=== PATIENT | female | born 1990 | race American Indian/Alaskan Native ===

== ENCOUNTER 2017-09-25 09:52 | Inpatient (IN) | payer MEDICAID ==
--- NOTE | 2017-09-23 03:13 | History and Physical Report ---
History of Present Illness Date of examination: 09/25/17 Chief complaint: scheduled section History of present illness: Pt is a 27 year old -[place] female LUAN 09/27/17 at 39w5d who presents for scheduled repeat section secondary to previous x 1. She reports irregular contractions and denies vaginal bleeding or leakage of fluid. She has had care at [facility] since transfer into care at 30 wks complicated y previous section. She is GBS negative. Past History Past Medical History: no pertinent history, other (Anxiety ) Past Surgical History: section, other (Hernia repair ) Family/Genetic History: hypertension Social history: no significant social history - Obstetrical History Expected Date of Delivery: 09/27/17 Actual Gestation: 39 Week(s) 3 Day(s) : 2 Para: 1 Hx # Term Pregnancies: 1 Number of Pregnancies: 0 Spontaneous Abortions: 0 Induced : 0 Number of Living Children: 1 Medications and Allergies Allergies Allergy/AdvReac Type Severity Reaction Status Date / Time No Known Allergies Allergy Unverified 03/21/14 15:35 Home Medications Medication Instructions Recorded Confirmed Last Taken Type Ondansetron [Zofran Odt] 4 mg PO QID PRN #30 tab.rapdis 03/21/14 Unknown Rx Review of Systems All systems: negative Gastrointestinal: nausea - Physical Exam Breasts: Positive: deferred Cardiovascular: Regular rate Lungs: Positive: Clear to auscultation Abdomen: Positive: soft (gravid ) Uterus: Positive: enlarged (gravid) Extremities: Positive: normal - Obstetrical FHR: auscultation normal Uterine Contraction Monitor Mode: External Uterine Contraction Pattern: Irregular Uterine Tone Measurement Phase: Resting Results All other labs normal. Assessment and Plan A: IUP at 39w5d Previous x 1 GBS negative P: Proceed with repeat section and other indicated procedures.
[~2017-09-25 09:52] MED LIST: ANCEF/STERILE WATER 2 GM/20 ML 2 GM/20 ML SYRINGE IV NR; BICITRA PO ONE; PEPCID IV ONE; PITOCin/NS 20 UNIT/1000ML DRIP 20 UNITS/1,000 ML BAG IV SCH; REGLAN IV ONE
[2017-09-25] MEDS: LACTATED RINGERS 1,000 ML IV SCH ×2 (11:00→11:35)
[2017-09-25] MEDS ORDERED: PEPCID IV ONE (11:24)
[2017-09-25] MEDS ORDERED: REGLAN ONE (11:24)
[2017-09-25] MEDS ORDERED: BICITRA ONE (11:24)
[2017-09-25 11:40] LABS: Hematocrit 35.2 % (30.3-42.9); Hemoglobin 11.2 gm/dl (10.1-14.3); Mean Corpuscular HGB Conc 32 % (30-34); Mean Corpuscular Volume 79 fl (79-97); Platelet Count 226 K/mm3 (140-440); Red Blood Count 4.46 M/mm3 (3.65-5.03); Red Cell Distribution Width 13.1 % (13.2-15.2)
[2017-09-25 11:53] LABS: Mean Corpuscular Hemoglobin 25 pg (28-32)
[2017-09-25] MEDS ORDERED: WATER FOR IRRIG STERILE IR ONE (12:05)
[2017-09-25] MEDS ORDERED: NACL 0.9% IR ONE (12:05)
[2017-09-25] MEDS ORDERED: NEO SYNEPHRINE/NS Syringe(OR USE) IV ONE (12:25)
[2017-09-25 12:41] LABS: Basophils % (Manual) 0 % (0.0-1.8); Total Cells Counted 100
[2017-09-25] MEDS ORDERED: LACTATED RINGERS 1,000 ML ONE (12:41)
[2017-09-25 12:42] LABS: Hypochromasia 1+; Platelet Estimate Consistent w Auto
--- NOTE | 2017-09-25 14:00 | Procedure Note ---
OB Delivery Note - Delivery Date of Delivery: 09/25/17 Surgeon: HONG SEWELL Estimated blood loss: other (800 mL) - Section Preop diagnosis: repeat Postop diagnosis: same section procedure: section, repeat low transverse Disposition: PACU Complications: none Narrative: Please see operative report - Infant A at 1 minute: 8 at 5 minutes: 9 Infant Gender: Female (2605g (5lb 12 oz) @ 1254 pm)
--- NOTE | 2017-09-25 14:04 | Operative Report ---
Operative Report Operative Report: Date of procedure: September 25, 2017 Preoperative diagnosis: 1) IUP at 39w5d 2) Previous x 1 3) Morbid Obesity BMI 43 Postoperative diagnosis: Same Procedure: Repeat low transverse section Surgeon: Parul Maldonado M.D. Anesthesia: Spinal Findings: 1) Viable female , Apgars 8 and 9, weight 2605g, (5 lb 12 oz) in vertex presentation 2) Normal-appearing uterus ovaries and tubes Estimated blood loss: 800 mL IV fluids: 1400 mL Urine output: 125 mL, clear at the end of the procedure Drains: Roman to gravity Specimens: None Medications: Additional 20 units of pitocin in IV fluid Complications: None. Counts correct x 3 Disposition: Stable to PACU Indication for procedure: Pt is a 27 year old at 39w5d with a h/o one previous presents for repeat section Operation in detail: After the risks, benefits, alternatives and complications were explained to the patient she gave informed consent for the procedure. She was subsequently taken to the operating room where spinal anesthesia was noted to be adequate. She was subsequently placed in the dorsal supine position with leftward tilt and prepped and draped in a normal sterile fashion. heart tones were noted to be in the 155s prior to incision. A timeout was performed. A Pfannenstiel skin incision was made with the knife and carried down to the layer of the fascia with the Bovie. The fascia was incised in the midline and the fascial incision was extended bilaterally with the Bovie. Attention was then turned to the superior aspect of the incision which was grasped with two Kochers, tented up, and dissected off the rectus muscles. Attention was then turned to the inferior aspect of the incision which was grasped with two Kochers , tented up and dissected off the rectus muscles. The rectus muscles were then in the midline and partially transected for adequate visualization. The peritoneum was then entered bluntly. The peritoneal incision was extended with good visualization of the bladder. The peritoneal incision was then stretched. An Rip self-retaining retractor was placed for visualization. The bladder blade was placed. The vesicouterine peritoneum was grasped with smooth pickups and incised with Metzenbaum scissors. Metzenbaum scissors were used to extend the incision bilaterally. The bladder flap was then created digitally and the bladder blade was replaced. A transverse incision was made in the lower uterine segment with a knife and extended bilaterally with the bandage scissors. The head was delivered without difficulty followed by shoulders and body. was bulb suctioned at delivery. The cord was clamped and cut and the was handed to NICU staff in attendance. Cord blood was collected. The placenta was then delivered manually. The uterus was then cleared of all clots and debris. Uterine atony was then noted, and an additional 20 units of pitocin was added to the IVf fluids. Uterine tone was improved. The hysterotomy was then reapproximated with 0 Vicryl in a running locked fashion. A second layer of the same suture was used in imbricating fashion. The hysterotomy was inspected and hemostasis was noted. The Rip self-retaining retractor was removed. The gutters were irrigated and cleared of all clots and debris. The hysterotomy was again inspected and noted to be hemostatic. Surgicel was placed over the hysterotomy. The periotoneum was reapproximated with 2-0 Vicryl in a running fashion incorporating the rectus muscles. Surigcel was placed over the cut edges of the rectus muscles. The fascia was reapproximated with 0 Vicryl in a running fashion. The subcutaneous tissue was reapproximated with 3-0 Vicryl in a running fashion. The skin was reapproximated with 4-0 Vicryl in a subcuticular fashion. The incision was then covered with steri strips and a pressure dressing. The procedure was then ended. The patient tolerated the procedure well and was taken to the PACU in stable condition. All instrument, lap, and needle counts were correct 3.
--- NOTE | 2017-09-25 14:06 | Anesthesia Consultation ---
Anesthesia Consult and Med Hx - Airway Anesthetic Teeth Evaluation: Good ROM Head & Neck: Adequate Mental/Hyoid Distance: Adequate Mallampati Class: Class II Intubation Access Assessment: Probably Good - Pulmonary Exam CTA: Yes - Cardiac Exam Cardiac Exam: RRR - Pre-Operative Health Status ASA Pre-Surgery Classification: ASA2, ASA3 Proposed Anesthetic Plan: Spinal - Pulmonary Hx Asthma: No COPD: No Hx Pneumonia: No - Cardiovascular System Hx Hypertension: No - Central Nervous System Hx Seizures: No Hx Psychiatric Problems: No - Endocrine Hx Renal Disease: No Hx End Stage Renal Disease: No Hx Hypothyroidism: No Hx Hyperthyroidism: No - Hematic Hx Anemia: No Hx Sickle Cell Disease: No - Other Systems Hx Alcohol Use: No Hx Obesity: Yes
--- NOTE | 2017-09-25 14:07 | Anesthesia Day of Surgery ---
Anesthesia Day of Surgery - Day of Surgery Patient Examined: Yes Patient H&P Reviewed: Yes Patient is NPO: Yes
[2017-09-25] MEDS ORDERED: MORPHINE IV PRN ×3 (14:13→18:36)
[2017-09-25] MEDS ORDERED: ZOFRAN IV PRN ×2 (14:13→18:36)
[2017-09-25] MEDS ORDERED: BENADRYL ONE (15:21)
[2017-09-25] MEDS ORDERED: LANSINOH TP PRN (18:36)
[2017-09-25] MEDS ORDERED: SODIUM CHLORIDE FLUSH SYRINGE 10 ML IV SCH (18:36)
[2017-09-25] MEDS ORDERED: MYLICON PO PRN (18:36)
[2017-09-25] MEDS ORDERED: ANCEF/NS 1 GM/50 ML 1 GM/50 ML BAG IV SCH (18:36)
[2017-09-25] MEDS ORDERED: NARCAN 0.4 MG/1 ML IV PRN (18:36)
[2017-09-25] MEDS ORDERED: TUCKS PAD TP PRN (18:36)
[2017-09-25] MEDS ORDERED: PITOCin/NS 20 UNIT/1000ML DRIP 20 UNITS/1,000 ML BAG IV SCH (19:00)
[2017-09-25] MEDS ORDERED: NUBAIN IV ONE (19:00)
[2017-09-25] MEDS: ceFAZolin 1 GM in NACL 0.9% 20 ML IV SCH (19:47)
[2017-09-25] MEDS: D5LR 1,000 ML IV SCH (19:47)
[2017-09-25] MEDS: BENADRYL IV PRN (22:32)
[2017-09-25] MEDS: MILK OF MAGNESIA PO SCH (23:16)
[2017-09-25] MEDS: TORADOL IV PRN (23:16)
[2017-09-26] MEDS: BENADRYL IV PRN (04:39)
[2017-09-26] MEDS: TORADOL IV PRN (04:39)
[2017-09-26] MEDS: ceFAZolin 1 GM in NACL 0.9% 20 ML IV SCH (04:40)
[2017-09-26] MEDS: D5LR 1,000 ML IV SCH (04:43)
[2017-09-26 05:52] LABS: Hematocrit 29.8 % (30.3-42.9); Hemoglobin 9.8 gm/dl (10.1-14.3)
[2017-09-26] MEDS ORDERED: BOOSTRIX IM ONE (06:00)
[2017-09-26] MEDS: MILK OF MAGNESIA PO SCH ×3 (06:31→18:31)
--- NOTE | 2017-09-26 08:25 | Progress Note ---
Assessment and Plan A/P POD#1 s/p repeat c/sec doing well breast feeding anemia 11-9 iron supplement added +flatus gonzales removed adequate urine output awaiting urination continue routine POD orders Subjective - Subjective Date of service: 09/26/17 Principal diagnosis: s/p repeat c/sec Patient reports: appetite normal, pain well controlled, flatus, ambulating normally : doing well, nursing well Objective - Vital Signs Latest vital signs: Vital Signs Temp Pulse Resp BP BP Pulse Ox 09/26/17 05:09 18 09/26/17 04:39 18 09/26/17 04:10 98.8 F 105 H 20 118/55 97 09/26/17 00:35 98.7 F 112 H 20 134/66 98 09/25/17 23:46 18 09/25/17 23:16 18 09/25/17 21:30 99.3 F 107 H 20 131/59 98 09/25/17 20:28 18 09/25/17 19:58 18 09/25/17 16:00 97.6 F 94 H 20 116/68 100 09/25/17 15:45 98.1 F 84 20 134/54 09/25/17 15:10 97.6 F 09/25/17 15:06 88 17 105/55 99 09/25/17 15:00 79 15 111/55 100 09/25/17 14:55 78 22 104/49 98 09/25/17 14:50 78 20 104/46 99 09/25/17 14:45 92 H 18 103/50 98 09/25/17 14:40 95 H 20 104/44 99 09/25/17 14:35 82 20 97/39 97 09/25/17 14:30 85 22 98/39 99 09/25/17 14:24 87 18 95/44 96 09/25/17 14:18 83 19 95/39 97 09/25/17 14:12 97 H 17 104/59 99 09/25/17 14:07 101 H 99 09/25/17 14:06 89 11 L 98 09/25/17 14:05 97.6 F 92 H 14 106/41 97 09/25/17 14:02 91 H 99 09/25/17 13:57 99 H 98 09/25/17 13:52 96 H 98 09/25/17 13:47 111 H 98 09/25/17 13:42 110 H 97 09/25/17 13:38 103 H 138/90 09/25/17 13:37 104 H 100 09/25/17 11:36 100 H 100 09/25/17 11:19 98 H 120/77 09/25/17 11:02 98.0 F 20 09/25/17 10:43 110 H 130/90 Intake and Output 09/25/17 09/26/17 09/26/17 23:59 07:59 15:59 Intake Total 120 1240 Output Total 1100 1200 Balance -980 40 Intake: IV 1000 D5lr 1,000 ml @ 125 mls/ 1000 hr IV DIRECT ZULEIKA Rx#: [id number] Oral 120 240 Output: Urine 1100 1200 Indwelling Catheter 1100 1200 Other: Total, Intake Amount 120 240 Total, Output Amount 800 1200 # Bowel Movements 0 - Exam Breasts: Present: normal Cardiovascular: Present: Regular rate, Normal S1 Lungs: Present: Clear to auscultation, Normal air movement Abdomen: Present: normal appearance, soft, normal bowel sounds. Absent: distention, tenderness, guarding Vulva: both: normal Uterus: Present: normal, firm, fundal height below umbilicus. Absent: bogginess , tenderness Extremities: Present: normal Deep Tendon Reflex Grade: Normal +2 Incision: Present: normal, dressed - Labs Labs: Abnormal lab results 09/25/17 09/26/17 Range/Units 10:30 05:38 Hgb 9.8 L (10.1-14.3) gm/dl Hct 29.8 L (30.3-42.9) % MCH 25 L (28-32) pg RDW 13.1 L (13.2-15.2) % Seg Neuts % (Manual) 72.0 H (40.0-70.0) % Monocytes % (Manual) 8.0 H (0.0-7.3) %
[2017-09-26] MEDS ORDERED: FEOSOL PO SCH (10:00)
[2017-09-26] MEDS: FEOSOL PO SCH (13:30)
[2017-09-26] MEDS ORDERED: M-M-R II VACCINE SUB-Q ONE (14:06)
[2017-09-26] MEDS: PERCOCET 5/325 PO PRN ×2 (15:06→20:38)
--- NOTE | 2017-09-26 15:22 | Progress Note ---
Subjective Date of service: 09/26/17 Principal diagnosis: s/p repeat c/sec Interval history: Patient seen, has had some cramping but otherwise comfortable and ambulating. Objective - Constitutional Vitals: Vital Signs - 12hr 09/26/17 09/26/17 09/26/17 04:10 04:39 05:09 Temperature 98.8 F Pulse Rate 105 H Respiratory 20 18 18 Rate Blood Pressure Blood Pressure 118/55 [Left] O2 Sat by Pulse 97 Oximetry 09/26/17 09/26/17 09/26/17 05:43 08:52 09:13 Temperature 99.3 F 99.3 F Pulse Rate 105 H 108 H 104 H Respiratory 18 20 Rate Blood Pressure 118/55 114/62 Blood Pressure 114/62 [Left] O2 Sat by Pulse 96 97 Oximetry 09/26/17 12:38 Temperature 98.5 F Pulse Rate 110 H Respiratory 18 Rate Blood Pressure 123/60 Blood Pressure [Left] O2 Sat by Pulse 99 Oximetry - Labs CBC & Chem 7: 09/26/17 05:38 Labs: Abnormal lab results 09/26/17 Range/Units 05:38 Hgb 9.8 L (10.1-14.3) gm/dl Hct 29.8 L (30.3-42.9) %
[2017-09-26] MEDS: MOTRIN PO PRN (20:38)
[2017-09-27] MEDS: MILK OF MAGNESIA PO SCH ×3 (00:07→12:00)
--- NOTE | 2017-09-27 06:04 | Progress Note ---
Assessment and Plan A/P POD#2 s/p repeat c/sec doing well breast feeding anemia 11-9 iron supplement added +flatus continue routine orders consider d/c home this evening Subjective - Subjective Date of service: 09/27/17 Principal diagnosis: s/p repeat c/sec Patient reports: appetite normal, voiding normally, pain well controlled, flatus , ambulating normally [place]: doing well, nursing well Objective - Vital Signs Latest vital signs: Vital Signs Temp Pulse Resp BP BP Pulse Ox 09/27/17 00:13 98.1 F 109 H 18 130/65 96 09/26/17 20:38 18 09/26/17 16:52 98.3 F 20 137/71 09/26/17 16:51 98.3 F 94 H 20 137/71 09/26/17 12:38 98.5 F 110 H 18 123/60 99 09/26/17 09:13 99.3 F 104 H 20 114/62 09/26/17 08:52 99.3 F 108 H 18 114/62 97 Intake and Output 09/26/17 09/26/17 09/27/17 15:59 23:59 07:59 Output Total 550 400 Balance -550 -400 Output: Urine 550 400 Void 550 400 Other: Total, Output Amount 550 400 - Exam Breasts: Present: normal Cardiovascular: Present: Regular rate, Normal S1 Lungs: Present: Clear to auscultation, Normal air movement Abdomen: Present: normal appearance, soft, normal bowel sounds. Absent: distention, tenderness, guarding Vulva: both: normal Uterus: Present: normal, firm, fundal height below umbilicus. Absent: bogginess , tenderness Extremities: Present: normal Deep Tendon Reflex Grade: Normal +2 Incision: Present: normal, dry, intact
[2017-09-27] MEDS: FEOSOL PO SCH ×2 (09:13→21:28)
[2017-09-27] MEDS: PERCOCET 5/325 PO PRN (17:25)
[2017-09-27] MEDS: MOTRIN PO PRN (17:27)
[2017-09-28] MEDS: PERCOCET 5/325 PO PRN ×2 (06:16→14:20)
[2017-09-28] MEDS: MOTRIN PO PRN ×2 (06:16→14:20)
[2017-09-28] MEDS: MILK OF MAGNESIA PO SCH (07:42)
--- NOTE | 2017-09-28 08:56 | Discharge Summary ---
Providers - Providers Date of Admission: 09/25/17 09:52 Date of discharge: 09/28/17 Attending physician: HONG SEWELL 09/25/17 18:36 Consult to [facility] [CONS] Routine Reason For Exam: Primary care physician: KIMBERLY SEWELL Hospitalization Reason for admission: section Delivery: Procedure: repeat low transverse Episiotomy: none Laceration: none Incision: normal, dry, intact Other procedures: none complications: none Discharge diagnosis: IUP at term delivered [place] baby: female Condition at discharge: Good Disposition: DC-01 TO HOME OR SELFCARE Plan - Discharge Medications Prescriptions: Ferrous Sulfate [Feosol 325 MG tab] 325 mg PO BID #60 tablet Ibuprofen [Motrin] 800 mg PO Q8HR PRN #30 tablet PRN Reason: Pain oxyCODONE /ACETAMINOPHEN [Percocet 5/325] 1 tab PO Q6HR PRN #40 tablet PRN Reason: Pain - Provider Discharge Summary Activity: routine, no sex for 6 weeks Diet: routine Instructions: routine Additional instructions: [] Smoking cessation referral if applicable(refer to patient education folder for contact #) [] Refer to [facility] Booklet Call your doctor immediately for: * Fever > 100.5 * Heavy vaginal bleeding ( >1 pad per hour) * Severe persistent headache * Shortness of breath * Reddened, hot, painful area to leg or breast * Drainage or odor from incision. * Keep incision clean and dry at all times and follow doctor's instructions regarding bathing/showering - Follow up plan Follow up: KIMBERLY SEWELL MD [Primary Care Provider] - 14 Days
--- NOTE | 2017-09-28 08:58 | Progress Note ---
Assessment and Plan A/P POD#3 s/p repeat c/sec doing well breast feeding anemia 11-9 iron supplement added +flatus continue routine orders d/c home f/u in 2 weeks for dressing check Subjective - Subjective Date of service: 09/28/17 Principal diagnosis: s/p repeat c/sec Patient reports: appetite normal, voiding normally, pain well controlled, flatus , ambulating normally [place]: doing well Objective - Vital Signs Latest vital signs: Vital Signs Temp Pulse Resp BP BP Pulse Ox 09/28/17 00:20 98.0 F 107 H 20 131/76 99 09/27/17 16:37 98.4 F 107 H 18 111/70 96 Intake and Output 09/27/17 09/28/17 09/28/17 23:59 07:59 15:59 Intake Total 240 Balance 240 Intake: Oral 240 Other: Total, Intake Amount 240 # Voids Void 1 - Exam Breasts: Present: normal, mass Cardiovascular: Present: Regular rate, Normal S1 Lungs: Present: Clear to auscultation Abdomen: Present: normal appearance, soft, normal bowel sounds. Absent: distention, tenderness, guarding Vulva: both: normal Uterus: Present: normal, firm, fundal height below umbilicus. Absent: bogginess , tenderness Extremities: Present: normal Deep Tendon Reflex Grade: Normal +2 Incision: Present: normal, dry, intact
[2017-09-28 09:10] VITALS: BP 136/79
[2017-09-28] MEDS: FEOSOL PO SCH (14:20)
== END 2017-09-28 16:00 | disposition home or self-care (01) | DRG 765 ==
LOC: APU 09:52 → OB 15:49
PROVIDERS: ADMIT Obstetrics & Gynecology; ATTEND Obstetrics & Gynecology
PROC: 10D00Z1 Extraction of Products of Conception, Low, Open Approach (ICD-10-PCS; principal; 2017-09-25)
PROC: 3E0234Z Introduction of Serum, Toxoid and Vaccine into Muscle, Percutaneous Approach (ICD-10-PCS; 2017-09-26)
DX: O34.211 Maternal care for low transverse scar from previous cesarean delivery (principal); Z68.41 Body mass index [BMI] 40.0-44.9, adult; O99.344 Other mental disorders complicating childbirth; F41.9 Anxiety disorder, unspecified; O99.214 Obesity complicating childbirth; O99.02 Anemia complicating childbirth; D64.9 Anemia, unspecified; E66.01 Morbid (severe) obesity due to excess calories; Z3A.39 39 weeks gestation of pregnancy; Z37.0 Single live birth; Z71.3 Dietary counseling and surveillance; Z23 Encounter for immunization; Z82.49 Family history of ischemic heart disease and other diseases of the circulatory system
CPT/HCPCS: 36415; 59025; 85007; 85014; 85018; 85025; 86850; 86900; 86901; 96360; 99211; G0463; J0690; J1200; J1885; J2300; J2370; J2590; J2765; J7120; J7121

== ENCOUNTER 2020-08-21 07:09 | Inpatient (IN) | payer MEDICAID, OTHER ==
[2020-08-21 08:49] LABS: Basophils # (Auto) 0.1 K/mm3 (0.0-0.1); Basophils % (Auto) 0.5 % (0.0-1.8); Eosinophils % (Auto) 0.1 % (0.0-4.3); Hematocrit 43.5 % (30.3-42.9); Lymphocytes # (Auto) 1.1 K/mm3 (1.2-5.4); Lymphocytes % (Auto) 9.2 % (13.4-35.0); Mean Corpuscular HGB Conc 32 % (30-34); Mean Corpuscular Volume 82 fl (79-97); Monocytes # (Auto) 0.3 K/mm3 (0.0-0.8); Monocytes % (Auto) 2.6 % (0.0-7.3); Platelet Count 277 K/mm3 (140-440); Red Blood Count 5.28 M/mm3 (3.65-5.03)
[2020-08-21 08:57] LABS: Alanine Aminotransferase 8 units/L (7-56); Albumin 4.1 g/dL (3.9-5); Blood Urea Nitrogen 12 mg/dL (7-17); Calcium 9.2 mg/dL (8.4-10.2); Hemolysis Index 4
[2020-08-21 08:59] LABS: BUN/Creatinine Ratio 20
[2020-08-21 09:02] LABS: Bilirubin,Urine NEG (Negative); Blood,Urine LG (Negative); Color,Urine Yellow (Yellow); Mucus,Urine 1+ /HPF; Urobilinogen,Urine < 2.0 mg/dL (<2.0)
[2020-08-21 09:05] LABS: RBC,Urine > 182.0 /HPF (0.0-6.0)
[2020-08-21] MEDS ORDERED: ONDANSETRON 4 MG/2 ML INJ IV STA (11:01)
[2020-08-21] MEDS ORDERED: SODIUM CHLORIDE 0.9% 1000 ML 1,000 ML IV ONE ×2 (11:01→14:57)
[2020-08-21] MEDS ORDERED: MORPHINE 4 MG/1 ML INJ IV STA ×2 (11:01→14:30)
[2020-08-21 11:46] LABS: HCG Qualitative,Urine Negative (Negative)
--- NOTE | 2020-08-21 12:39 | Cat Scan Report ---
CT ABDOMEN AND PELVIS WITH CONTRAST INDICATION: Severe abdominal pain with hernia. TECHNIQUE: Axial CT images were obtained through the abdomen and pelvis after 100 cc Omni [address] scans at this location are performed using CT dose reduction for ALARA by means of automated expos ure control. COMPARISON: None available. FINDINGS: LOWER CHEST: No significant abnormality. LIVER: No significant abnormality. GALLBLADDER: No significant abnormality. BILE DUCTS: No significant abnormality. PANCREAS: No significant abnormality. SPLEEN: No significant abnormality. ADRENALS: No significant abnormality. RIGHT KIDNEY and URETER: No significant abnormality. LEFT KIDNEY and URETER: No significant abnormality. STOMACH and SMALL BOWEL: Ventral abdominal wall hernia containing loops of small bowel with moderate dilatation of several loops of mid small bowel with collapse of stomach, proximal and distal small hillary wel suggestive for a closed loop obstruction. COLON: No significant abnormality. APPENDIX: No significant abnormality. PERITONEUM: No free fluid. No free air. No fluid collection. LYMPH NODES: No significant adenopathy. AORTA and ARTERIES: No significant abnormality. IVC and VEINS: No significant abnormality. URINARY BLADDER: No significant abnormality. REPRODUCTIVE ORGANS: No significant abnormality. ADDITIONAL FINDINGS: Ventral abdominal wall hernia mesh. SKELETAL SYSTEM: No significant abnormality. IMPRESSION: 1. Moderate grade closed-loop mid small bowel obstruction secondary to incarcerated ventral abdominal wall hernia containing loops of small bowel with adjacent hernia mesh. Signer Name: Rajeev Guadalupe MD Signed: 08/21/2020 12:34 PM Workstation Name: [id number]
--- NOTE | 2020-08-21 14:27 | Emergency Department Report ---
ED Abdominal Pain HPI - General Chief Complaint: Abdominal Pain Stated Complaint: ABDOMINAL PAIN Time Seen by Provider: 08/21/20 11:01 Source: patient, EMS Mode of arrival: Ambulatory Limitations: No Limitations - History of Present Illness Initial Comments: 30-year-old -[place] female presents emergency department complaining of umbilical abdominal pain/hernia which started yesterday after a cough. She had a hernia repair in 2016 somewhere in [place] and has had very minimal complications since the repair. Pain has been progressively worsening since the onset on yesterday reports no no vomiting but has experienced nausea. MD Complaint: abdominal pain Location: diffuse Radiation: other Migration to: no migration Severity scale (0 -10): 0 Consistency: constant Improves With: nothing Worsens With: nothing Associated Symptoms: denies: vomiting, diarrhea, constipation, dysuria, hematochezia - Related Data Home Medications Medication Instructions Recorded Confirmed Last Taken Vit-Fe Fumar-FA [ 1 tab PO QDAY 09/25/17 09/25/17 09/24/17 14:00 Vitamin] 1 Previous Rx's Medication Instructions Recorded Last Taken Type Ferrous Sulfate [Feosol 325 MG tab] 325 mg PO BID #60 tablet 09/25/17 Unknown Rx Ibuprofen [Motrin] 800 mg PO Q8HR PRN #30 tablet 09/25/17 Unknown Rx oxyCODONE /ACETAMINOPHEN [Percocet 1 tab PO Q6HR PRN #40 tablet 09/25/17 Unknown Rx 5/325] Allergies Allergy/AdvReac Type Severity Reaction Status Date / Time No Known Allergies Allergy Verified 09/25/17 10:17 ED Review of Systems ROS: Stated complaint: ABDOMINAL PAIN Other details as noted in HPI Comment: All other systems reviewed and negative ED Past Medical Hx - Past Medical History Previous Medical History?: Yes Hx Hypertension: No Hx Congestive Heart Failure: No Hx Diabetes: No Hx Deep Vein Thrombosis: No Hx Renal Disease: No Hx Sickle Cell Disease: No Hx Arthritis: No Hx Seizures: No Hx Asthma: No Hx COPD: No Hx HIV: No Additional medical history: Umbilical hernia - Surgical History Past Surgical History?: No - Social History Smoking Status: Former Smoker Substance Use Type: Alcohol - Medications Home Medications: Home Medications Medication Instructions Recorded Confirmed Last Taken Type Ferrous Sulfate [Feosol 325 MG tab] 325 mg PO BID #60 tablet 09/25/17 Unknown Rx Ibuprofen [Motrin] 800 mg PO Q8HR PRN #30 tablet 09/25/17 Unknown Rx Vit-Fe Fumar-FA [ 1 tab PO QDAY 09/25/17 09/25/17 09/24/17 14:00 History Vitamin] 1 oxyCODONE /ACETAMINOPHEN [Percocet 1 tab PO Q6HR PRN #40 tablet 09/25/17 Unknown Rx 5/325] ED Physical Exam - General Limitations: No Limitations General appearance: alert, in no apparent distress - Head Head exam: Present: atraumatic, normocephalic - Eye Eye exam: Present: normal appearance - ENT ENT exam: Present: mucous membranes moist - Neck Neck exam: Present: normal inspection - Respiratory Respiratory exam: Present: normal lung sounds bilaterally. Absent: respiratory distress - Cardiovascular Cardiovascular Exam: Present: regular rate, normal rhythm. Absent: systolic murmur, diastolic murmur, rubs, gallop - GI/Abdominal GI/Abdominal exam: Present: soft, tenderness, normal bowel sounds, hernia (Umbilical hernia moderate tenderness to touch unable to reduce) - Extremities Exam Extremities exam: Present: normal inspection - Back Exam Back exam: Present: normal inspection - Neurological Exam Neurological exam: Present: alert, oriented X3 - Psychiatric Psychiatric exam: Present: normal affect, normal mood - Skin Skin exam: Present: warm, dry, intact, normal color. Absent: rash ED Course Vital Signs 08/21/20 08/21/20 08:01 11:15 Pulse Rate 77 Respiratory 18 18 Rate Blood Pressure 122/65 O2 Sat by Pulse 100 Oximetry - Consultations Consultation #1: 08/21/20 14:32 Case discussed with general surgeon Dr. Hamilton who is aware of the findings of the CT scan plan is to place in an NG tube lactic acid is has already been order ed she advised to admit to medicine is strong likelihood for the need for surgical intervention today Consultation #2: 08/21/20 14:39 Phoned hospitalist x2 make contact with Dr. Middleton, advised that he will call back Consultation #3: 08/21/20 15:25 Case discussed with attending Dr. Wagoner whom did have [id number] with the patient still please see his note for more detail ED Medical Decision Making - Lab Data Result diagrams: 08/21/20 08:19 08/21/20 08:19 - Radiology Data Radiology results: report reviewed [address] [place] [address] Cat Scan Report Signed Patient: MALIA REYNOSO MR#: [id number] : 1990 Acct:[id number] Age/Sex: 30 / F ADM Date: 08/21/20 Loc: ED Attending Dr: Ordering Physician: BRODY ROBBINS Date of Service: 08/21/20 Procedure(s): CT abdomen pelvis w con Accession Number(s): [id number] cc: BRODY ROBBINS CT ABDOMEN AND PELVIS WITH CONTRAST INDICATION: Severe abdominal pain with hernia. TECHNIQUE: Axial CT images were obtained through the abdomen and pelvis after 100 cc Omni [address] scans at this location are performed using CT dose reduction for ALARA by means of automated exposure control. COMPARISON: None available. FINDINGS: LOWER CHEST: No significant abnormality. LIVER: No significant abnormality. GALLBLADDER: No significant abnormality. BILE DUCTS: No significant abnormality. PANCREAS: No significant abnormality. SPLEEN: No significant abnormality. ADRENALS: No significant abnormality. RIGHT KIDNEY and URETER: No significant abnormality. LEFT KIDNEY and URETER: No significant abnormality. STOMACH and SMALL BOWEL: Ventral abdominal wall hernia containing loops of small bowel with moderate dilatation of several loops of mid small bowel with collapse of stomach, proximal and distal small bowel suggestive for a closed loop obstruction. COLON: No significant abnormality. APPENDIX: No significant abnormality. PERITONEUM: No free fluid. No free air. No fluid collection. LYMPH NODES: No significant adenopathy. AORTA and ARTERIES: No significant abnormality. IVC and VEINS: No significant abnormality. URINARY BLADDER: No significant abnormality. REPRODUCTIVE ORGANS: No significant abnormality. ADDITIONAL FINDINGS: Ventral abdominal wall hernia mesh. SKELETAL SYSTEM: No significant abnormality. IMPRESSION: 1. Moderate grade closed-loop mid small bowel obstruction secondary to incarcerated ventral abdominal wall hernia containing loops of small bowel with adjacent hernia mesh. Signer Name: Rajeev Guadalupe MD Signed: 08/21/2020 12:34 PM Workstation Name: [id number] Transcribed By: TL Dictated By: Rajeev Guadalupe MD Electronically Authenticated By: Rajeev Guadalupe MD Signed Date/Time: 08/21/20 1234 DD/ 1231 TD/TT: Critical care attestation.: If time is entered above; I have spent that time in minutes in the direct care of this critically ill patient, excluding procedure time. ED Disposition Clinical Impression: Small bowel obstruction, Umbilical hernia, incarcerated Disposition: OP ADMIT IP TO THIS HOSP Is pt being admited?: Yes Does the pt Need Aspirin: No Condition: Stable Instructions: Abdominal Pain (ED) Referrals: PRIMARY CARE, [Primary Care Provider] - 3-5 Days
[2020-08-21] MEDS ORDERED: PIPERACIL/TAZOBACTA 4.5/NS 100 4.5 GM/100 ML VIAL IV ONE (14:56)
[2020-08-21] MEDS ORDERED: LIDOCAINE VISCOUS 2% 15 ML ORAL LIQD MM STA (15:06)
[2020-08-21] MEDS ORDERED: LIDOCAINE (4%) 40 MG/ML TOPICAL SOLN 50 ML BOTTLE TP ONE (15:06)
--- NOTE | 2020-08-21 15:11 | Event Note ---
Date: 08/21/20 The patient was evaluated in the emergency department for symptoms described in the history of present illness. He/she was evaluated in the context of the global COVID-19 pandemic, which necessitated consideration that the patient might be at risk for infection with the virus that causes COVID-19. Institutional protocols and algorithms that pertain to the evaluation of patients at risk for COVID-19 are in a state of rapid change based on information released by regulatory bodies including the CDC and federal and state organizations. These policies and algorithms were followed during the patient's care in the emergency department. Please note that these policies, procedures and recommendations changed on a rapid basis. 30-year-old female presenting with abdominal pain, found to have small bowel obstruction. She is afebrile with reassuring vital signs at this time. Does not have a local primary care doctor. Nothing by mouth at the moment, pain control, antiemetics, nasogastric tube, and emergent surgical consultation. She is evaluated by my surgical colleague, who will make recommendations shortly, anticipate emergent operative intervention. Have discussed plan of care with the patient, who verbalized understanding, and is amenable to this plan of care. Physician assistance to arrange admission to medical team with a surgical consultation. Vital Signs 08/21/20 08/21/20 08/21/20 08:01 11:15 14:46 Pulse Rate 77 Respiratory 18 18 18 Rate Blood Pressure 122/65 O2 Sat by Pulse 100 Oximetry Lab Results 08/21/20 08/21/20 08/21/20 Range/Units 08:19 08:19 08:30 WBC 11.4 H (4.5-11.0) K/mm3 RBC 5.28 H (3.65-5.03) M/mm3 Hgb 14.0 (10.1-14.3) gm/dl Hct 43.5 H (30.3-42.9) % MCV 82 (79-97) fl MCH 27 L (28-32) pg MCHC 32 (30-34) % RDW 14.0 (13.2-15.2) % Plt Count 277 (140-440) K/mm3 Lymph % (Auto) 9.2 L (13.4-35.0) % [place] % (Auto) 2.6 (0.0-7.3) % Eos % (Auto) 0.1 (0.0-4.3) % Baso % (Auto) 0.5 (0.0-1.8) % Lymph # (Auto) 1.1 L (1.2-5.4) K/mm3 [place] # (Auto) 0.3 (0.0-0.8) K/mm3 Eos # (Auto) 0.0 (0.0-0.4) K/mm3 Baso # (Auto) 0.1 (0.0-0.1) K/mm3 Seg Neutrophils % 87.6 H (40.0-70.0) % Seg Neutrophils # 10.0 H (1.8-7.7) K/mm3 Sodium 140 (137-145) mmol/L Potassium 3.6 (3.6-5.0) mmol/L Chloride 105.0 (98-107) mmol/L Carbon Dioxide 25 (22-30) mmol/L Anion Gap 14 mmol/L BUN 12 (7-17) mg/dL Creatinine 0.6 (0.6-1.2) mg/dL Estimated GFR > 60 ml/min BUN/Creatinine Ratio 20 % Glucose 109 H (65-100) mg/dL Calcium 9.2 (8.4-10.2) mg/dL Total Bilirubin 0.50 (0.1-1.2) mg/dL AST 11 (5-40) units/L ALT 8 (7-56) units/L Alkaline Phosphatase 57 (35-129) units/L Total Protein 7.5 (6.3-8.2) g/dL Albumin 4.1 (3.9-5) g/dL Albumin/Globulin Ratio 1.2 % Lipase 13 (13-60) units/L Urine Color Yellow (Yellow) Urine Turbidity Slightly-cloudy (Clear) Urine pH 5.0 (5.0-7.0) Ur Specific [place] 1.024 (1.003-1.030) Urine Protein 100 mg/dl (Negative) mg/dL Urine Glucose (UA) Neg (Negative) mg/dL Urine Ketones 20 (Negative) mg/dL Urine Blood Lg (Negative) Urine Nitrite Neg (Negative) Urine Bilirubin Neg (Negative) Urine Urobilinogen < 2.0 (<2.0) mg/dL Ur Leukocyte Esterase Tr (Negative) Urine WBC (Auto) 9.0 H (0.0-6.0) /HPF Urine RBC (Auto) > 182.0 (0.0-6.0) /HPF U Epithel Cells (Auto) 4.0 (0-13.0) /HPF Urine Mucus 1+ /HPF Urine HCG, Qual (Negative) 08/21/20 Range/Units 08:30 WBC (4.5-11.0) K/mm3 RBC (3.65-5.03) M/mm3 Hgb (10.1-14.3) gm/dl Hct (30.3-42.9) % MCV (79-97) fl MCH (28-32) pg MCHC (30-34) % RDW (13.2-15.2) % Plt Count (140-440) K/mm3 Lymph % (Auto) (13.4-35.0) % [place] % (Auto) (0.0-7.3) % Eos % (Auto) (0.0-4.3) % Baso % (Auto) (0.0-1.8) % Lymph # (Auto) (1.2-5.4) K/mm3 [place] # (Auto) (0.0-0.8) K/mm3 Eos # (Auto) (0.0-0.4) K/mm3 Baso # (Auto) (0.0-0.1) K/mm3 Seg Neutrophils % (40.0-70.0) % Seg Neutrophils # (1.8-7.7) K/mm3 Sodium (137-145) mmol/L Potassium (3.6-5.0) mmol/L Chloride (98-107) mmol/L Carbon Dioxide (22-30) mmol/L Anion Gap mmol/L BUN (7-17) mg/dL Creatinine (0.6-1.2) mg/dL Estimated GFR ml/min BUN/Creatinine Ratio % Glucose (65-100) mg/dL Calcium (8.4-10.2) mg/dL Total Bilirubin (0.1-1.2) mg/dL AST (5-40) units/L ALT (7-56) units/L Alkaline Phosphatase (35-129) units/L Total Protein (6.3-8.2) g/dL Albumin (3.9-5) g/dL Albumin/Globulin Ratio % Lipase (13-60) units/L Urine Color (Yellow) Urine Turbidity (Clear) Urine pH (5.0-7.0) Ur Specific [place] (1.003-1.030) Urine Protein (Negative) mg/dL Urine Glucose (UA) (Negative) mg/dL Urine Ketones (Negative) mg/dL Urine Blood (Negative) Urine Nitrite (Negative) Urine Bilirubin (Negative) Urine Urobilinogen (<2.0) mg/dL Ur Leukocyte Esterase (Negative) Urine WBC (Auto) (0.0-6.0) /HPF Urine RBC (Auto) (0.0-6.0) /HPF U Epithel Cells (Auto) (0-13.0) /HPF Urine Mucus /HPF Urine HCG, Qual Negative (Negative) CT ABDOMEN AND PELVIS WITH CONTRAST INDICATION: Severe abdominal pain with hernia. TECHNIQUE: Axial CT images were obtained through the abdomen and pelvis after 100 cc Omni [address] scans at this location are performed using CT dose reduction for ALARA by means of automated exposure control. COMPARISON: None available. FINDINGS: LOWER CHEST: No significant abnormality. LIVER: No significant abnormality. GALLBLADDER: No significant abnormality. BILE DUCTS: No significant abnormality. PANCREAS: No significant abnormality. SPLEEN: No significant abnormality. ADRENALS: No significant abnormality. RIGHT KIDNEY and URETER: No significant abnormality. LEFT KIDNEY and URETER: No significant abnormality. STOMACH and SMALL BOWEL: Ventral abdominal wall hernia containing loops of small bowel with moderate dilatation of several loops of mid small bowel with collapse of stomach, proximal and distal small bowel suggestive for a closed loop obstruction. COLON: No significant abnormality. APPENDIX: No significant abnormality. PERITONEUM: No free fluid. No free air. No fluid collection. LYMPH NODES: No significant adenopathy. AORTA and ARTERIES: No significant abnormality. IVC and VEINS: No significant abnormality. URINARY BLADDER: No significant abnormality. REPRODUCTIVE ORGANS: No significant abnormality. ADDITIONAL FINDINGS: Ventral abdominal wall hernia mesh. SKELETAL SYSTEM: No significant abnormality. IMPRESSION: 1. Moderate grade closed-loop mid small bowel obstruction secondary to incarcerated ventral abdominal wall hernia containing loops of small bowel with adjacent hernia mesh. Signer Name: Rajeev Guadalupe MD Signed: 08/21/2020 11:34 AM Workstation Name: [id number]
[2020-08-21] MEDS ORDERED: ONDANSETRON 4 MG/2 ML INJ ONE (16:47)
[2020-08-21] MEDS ORDERED: dexAMETHasone 20 MG/5 ML VIAL ONE (16:47)
[2020-08-21] MEDS ORDERED: LIDOCAINE MPF (2%) 20 MG/1 ML VIAL 5 ML ONE (16:47)
[2020-08-21] MEDS ORDERED: ROCURONIUM 50 MG/5 ML INJ IV ONE (16:47)
[2020-08-21] MEDS ORDERED: propofoL 200 MG/20 ML VIAL IV ONE (16:48)
[2020-08-21] MEDS ORDERED: HYDROmorphone 1 MG/1 ML INJ ONE (16:48)
--- NOTE | 2020-08-21 16:50 | Consultation ---
History of Present Illness Consult date: 08/21/20 Reason for consult: hernia Chief complaint: abdominal pain - History of present illness History of present illness: 30 year old female who presented to ED today with a one hx of increasing abdominal pain with nausea and vomiting. She has a history of ventral hernia repair a few years ago. CT scan today showed showed incarcerated hernia with bowel and fat at previous repair with mesh. She says she last passed gas this morning, and a bowel movement a few days ago. Past History Past Surgical History: hernia repair Social history: other (smokes cbd) Medications and Allergies Allergies Allergy/AdvReac Type Severity Reaction Status Date / Time No Known Allergies Allergy Verified 09/25/17 10:17 Home Medications Medication Instructions Recorded Confirmed Last Taken Type Ferrous Sulfate [Feosol 325 MG tab] 325 mg PO BID #60 tablet 09/25/17 Unknown Rx Ibuprofen [Motrin] 800 mg PO Q8HR PRN #30 tablet 09/25/17 Unknown Rx Vit-Fe Fumar-FA [ 1 tab PO QDAY 09/25/17 09/25/17 09/24/17 14:00 History Vitamin] 1 oxyCODONE /ACETAMINOPHEN [Percocet 1 tab PO Q6HR PRN #40 tablet 09/25/17 Unknown Rx 5/325] Active Meds: Active Medications Sodium Chloride (Nacl 0.9% 1000 Ml) 1,000 mls @ 150 mls/hr IV ONCE ONE Stop: 08/21/20 21:36 Last Admin: 08/21/20 15:17 Dose: 150 mls/hr Documented by: Review of Systems - Cardiovascular no chest pain - Respiratory no cough - Gastrointestinal abdominal pain, nausea, vomiting - Genitourinary Genitourinary: no dysuria Exam Vital Signs Pulse Resp BP Pulse Ox 77 18 122/65 100 08/21/20 08:01 08/21/20 08:01 08/21/20 08:01 08/21/20 08:01 - General physical appearance Positive: well developed, well nourished, moderate distress, severe pain - Respiratory Positive: normal expansion, normal respiratory effort - Extremities Extremities: no ischemia - Abdomen Abdomen: Present: other (non distended, obvious hernia defect just superior and to the right of umbilicus. non-reducible, very tender to palpation) Results - Labs 08/21/20 08:19 08/21/20 08:19 Abnormal lab results 08/21/20 08/21/20 08/21/20 Range/Units 08:19 08:19 08:30 WBC 11.4 H (4.5-11.0) K/mm3 RBC 5.28 H (3.65-5.03) M/mm3 Hct 43.5 H (30.3-42.9) % MCH 27 L (28-32) pg Lymph % (Auto) 9.2 L (13.4-35.0) % Lymph # (Auto) 1.1 L (1.2-5.4) K/mm3 Seg Neutrophils % 87.6 H (40.0-70.0) % Seg Neutrophils # 10.0 H (1.8-7.7) K/mm3 Glucose 109 H (65-100) mg/dL Urine WBC (Auto) 9.0 H (0.0-6.0) /HPF Diabetes panel 08/21/20 Range/Units 08:19 Sodium 140 (137-145) mmol/L Potassium 3.6 (3.6-5.0) mmol/L Chloride 105.0 (98-107) mmol/L Carbon Dioxide 25 (22-30) mmol/L BUN 12 (7-17) mg/dL Creatinine 0.6 (0.6-1.2) mg/dL Glucose 109 H (65-100) mg/dL Calcium 9.2 (8.4-10.2) mg/dL AST 11 (5-40) units/L ALT 8 (7-56) units/L Alkaline Phosphatase 57 (35-129) units/L Total Protein 7.5 (6.3-8.2) g/dL Albumin 4.1 (3.9-5) g/dL Calcium panel 08/21/20 Range/Units 08:19 Calcium 9.2 (8.4-10.2) mg/dL Albumin 4.1 (3.9-5) g/dL Pituitary panel 08/21/20 Range/Units 08:19 Sodium 140 (137-145) mmol/L Potassium 3.6 (3.6-5.0) mmol/L Chloride 105.0 (98-107) mmol/L Carbon Dioxide 25 (22-30) mmol/L BUN 12 (7-17) mg/dL Creatinine 0.6 (0.6-1.2) mg/dL Glucose 109 H (65-100) mg/dL Calcium 9.2 (8.4-10.2) mg/dL Adrenal panel 08/21/20 Range/Units 08:19 Sodium 140 (137-145) mmol/L Potassium 3.6 (3.6-5.0) mmol/L Chloride 105.0 (98-107) mmol/L Carbon Dioxide 25 (22-30) mmol/L BUN 12 (7-17) mg/dL Creatinine 0.6 (0.6-1.2) mg/dL Glucose 109 H (65-100) mg/dL Calcium 9.2 (8.4-10.2) mg/dL Total Bilirubin 0.50 (0.1-1.2) mg/dL AST 11 (5-40) units/L ALT 8 (7-56) units/L Alkaline Phosphatase 57 (35-129) units/L Total Protein 7.5 (6.3-8.2) g/dL Albumin 4.1 (3.9-5) g/dL - Imaging CT scan - abdomen: report reviewed, image reviewed CT scan - pelvis: report reviewed (incarcerated loop of bowel and fat in ventral hernia defect.), image reviewed Assessment and Plan 30 year old female with incarcerated ventral hernia, afebrile and stable. will take for emergent lap possible open ventral hernia reduction and repair, possible bowel resection. Pt signed informed consent and expressed understanding risks and benefits.
[2020-08-21] MEDS ORDERED: BUPIVACAINE-EPINEPHRINE/PF 0.5%-1:200,000 (10 ML) VIAL INFILTRATI ONE ×2 (16:55→18:17)
[2020-08-21] MEDS ORDERED: LIDOCAINE (1%) 10 MG/1 ML VIAL 20 ML MDV ONE (16:56)
[2020-08-21] MEDS ORDERED: ONDANSETRON 4 MG/2 ML INJ IV PRN ×3 (17:00→23:28)
[2020-08-21] MEDS ORDERED: HYDROmorphone 1 MG/1 ML INJ IV PRN ×3 (17:00→23:28)
--- NOTE | 2020-08-21 17:26 | Anesthesia Consultation ---
Anesthesia Consult and Med Hx Date of service: 08/21/20 - Airway Anesthetic Teeth Evaluation: Good ROM Head & Neck: Adequate Mental/Hyoid Distance: Adequate Mallampati Class: Class I - Pulmonary Exam CTA: Yes - Pre-Operative Health Status ASA Pre-Surgery Classification: ASA2, Emergency Proposed Anesthetic Plan: General - Pulmonary Hx Smoking: Yes (CBD oil) Hx Asthma: No Hx Respiratory Symptoms: No COPD: No Hx Pneumonia: No - Cardiovascular System Hx Hypertension: No - Central Nervous System Hx Neuromuscular Disorder: No Hx Seizures: No Hx Psychiatric Problems: No - Gastrointestinal Hx Ulcer: No Hx Gastroesophageal Reflux Disease: No - Endocrine Hx Renal Disease: No Hx End Stage Renal Disease: No Hx Liver Disease: No Hx Insulin Dependent Diabetes: No Hx Non-Insulin Dependent Diabetes: No Hx Hypothyroidism: No Hx Hyperthyroidism: No - Hematic Hx Anemia: No Hx Sickle Cell Disease: No - Other Systems Hx Alcohol Use: No Hx Substance Use: Yes (CBD oil- Marijuana) Hx Obesity: Yes - Additional Comments Anesthesia Medical History Comments: Denied anesthesia related complications
--- NOTE | 2020-08-21 17:27 | Anesthesia Day of Surgery ---
Anesthesia Day of Surgery - Day of Surgery Patient Examined: Yes Patient H&P Reviewed: Yes Patient is NPO: Yes Beta Blockers: No Cardiac Clearance: No Pulmonary Clearance: No
[2020-08-21] MEDS ORDERED: LACTATED RINGERS 1,000 ML ONE ×2 (17:29→18:55)
[2020-08-21] MEDS ORDERED: LIDOCAINE (1%) 10 MG/1 ML VIAL 20 ML MDV INFILTRATI ONE (18:17)
[2020-08-21] MEDS ORDERED: SODIUM CHLORIDE 0.9% IRR 1,500 ML BOTTLE IR ONE (18:17)
[2020-08-21] MEDS ORDERED: SUCCINYLCHOLINE CHLORIDE 200 MG/10 ML INJ MDV ONE (18:29)
[2020-08-21] MEDS ORDERED: GLYCOPYRROLATE 0.4 MG/2 ML INJ ONE (18:55)
[2020-08-21] MEDS ORDERED: NEOSTIGMINE 10MG/10 ML INJ MDV ONE (18:55)
[2020-08-21] MEDS ORDERED: KETOROLAC 30 MG/1 ML INJ ONE (18:57)
--- NOTE | 2020-08-21 19:45 | Operative Report ---
Operative Report Operative Report: DATE: 08/21/2020 SURGEON: ADARSH ALCOCER MD CARD HANGER: IRVIN ESQUIVEL DO PROCEDURE: LAPAROSCOPIC REDUCTION AND REPAIR OF VENTRAL HERNIA REPAIR WITH MESH PRE-OP DX: INCARCERATED VENTRAL HERNIA POST-OP DX: SAME PRE-OP ANESTHESIA: GETA INDICATION: 30-year-old female who presented to the emergency room with a 1 day history of abdominal pain nausea and vomiting. Upon work-up she was found to have an incarcerated ventral hernia with small bowel. She has a history of previous hernia repair in the same area. Patient was brought for emergent reduction and repair of hernia. She signed informed consent and expressed understanding of the risks and benefits. Details of procedure: Patient was brought into the OR suite, laid in supine position. General anesthesia was induced via successful endotracheal tube intubation. Patient abdomen was prepped and draped in sterile fashion, after a Roman catheter was placed under sterile technique and arms tucked at her sides. Starting with a stab incision in the left upper quadrant with a Veress needle the abdomen was insufflated to a pressure of 15 mmHg. After which using Optiview technique a 5 mm trocar was placed in the right upper quadrant through her previous laparoscopic incision. 2 working trochars were placed under direct visualization 5 mm in the right lower quadrant and left upper quadrant. There was noted to be small bowel and omentum through a hernia defect at her umbilicus and her previous mesh had shifted to one side exposing a defect. The bowel and the omentum was carefully reduced into the abdominal cavity with external pressure and traction from inside the abdomen. There was noted to be no gross injury to any abdominal contents. The hernia defect was noted to be approximately 2 cm. An incision was made above the umbilicus dissection was made down to the hernia sac. The hernia sac was exteriorized and dissected free and amputated from the abdominal fascia. An 8 cm round mesh was tabs in place into the abdominal cavity. It was secured to the intra-abdominal wall with tacks. The tabs were then secured with 0 Prolene. The fascial defect was then closed with 0 Prolene. The abdomen was then reinsufflated the area was examined and the mesh was laying flat, securely, with good coverage around the previous h ernia defect. The abdomen was then desufflated, all trochars removed. Skin edges were closed with 4-0 Monocryl followed by Dermabond. Local anesthesia using 50-50 lidocaine Marcaine was used at all incision sites. Patient was awoken, extubated, taken to recovery stable condition. All counts were correct. Specimen: Hernia sac Complication: None immediate Findings: 2 x 2 centimeter hernia defect at the umbilicus with incarcerated small bowel omentum that was reduced. Previous mesh found to be shifted exposing hernia defect.
[2020-08-21] MEDS ORDERED: oxyCODONE /ACETAMINOPHEN 5-325MG TAB PO PRN (20:36)
[2020-08-21] MEDS ORDERED: LACTATED RINGERS 1,000 ML IV SCH (20:36)
[2020-08-21] MEDS: MORPHINE 2 MG/1 ML INJ IV PRN (23:02)
[2020-08-21] MEDS ORDERED: METOCLOPRAMIDE 10 MG/2 ML INJ IV PRN (23:28)
[2020-08-21] MEDS ORDERED: ACETAMINOPHEN 325 MG TAB PO PRN (23:28)
--- NOTE | 2020-08-21 23:38 | History and Physical Report ---
History of Present Illness Date of examination: 08/21/20 Date of admission: 08/21/20 16:25 Chief complaint: Abdominal pain for 1 day. History of present illness: 30-year-old -[place]ian female comes in for sudden onset of abdominal pain since yesterday. Pain happened after cough. Patient had hernia repair in 2016 at [facility] [place]. Pain is worsening and about 10 on a scale of 1-10. No vomiting. Nausea present. Pain is sharp in nature and intermittent. No fever or chills. - Past Medical History Previous Medical History?: Yes Additional medical history: Umbilical hernia - Surgical History Past Surgical History?: No - Social History Smoking Status: Former Smoker Substance Use Type: Alcohol - Medications Home Medications: Home Medications Medication Instructions Recorded Confirmed Last Taken Type Ferrous Sulfate [Feosol 325 MG tab] 325 mg PO BID #60 tablet 09/25/17 Unknown Rx Ibuprofen [Motrin] 800 mg PO Q8HR PRN #30 tablet 09/25/17 Unknown Rx Vit-Fe Fumar-FA [ 1 tab PO QDAY 09/25/17 09/25/17 09/24/17 14:00 History Vitamin] 1 oxyCODONE /ACETAMINOPHEN [Percocet 1 tab PO Q6HR PRN #40 tablet 09/25/17 Unknown Rx 5/325] Review of Systems ROS: Stated complaint: ABDOMINAL PAIN Other details as noted in HPI Comment: All other systems reviewed and negative Past History Past Surgical History: hernia repair Social history: other (smokes cbd) Medications and Allergies Allergies Allergy/AdvReac Type Severity Reaction Status Date / Time No Known Allergies Allergy Verified 09/25/17 10:17 Home Medications Medication Instructions Recorded Confirmed Last Taken Type Ferrous Sulfate [Feosol 325 MG tab] 325 mg PO BID #60 tablet 09/25/17 Unknown Rx Ibuprofen [Motrin] 800 mg PO Q8HR PRN #30 tablet 09/25/17 Unknown Rx Vit-Fe Fumar-FA [ 1 tab PO QDAY 09/25/17 09/25/17 09/24/17 14:00 History Vitamin] 1 oxyCODONE /ACETAMINOPHEN [Percocet 1 tab PO Q6HR PRN #40 tablet 09/25/17 Unknow n Rx 5/325] Active Meds: Active Medications Lactated Ringer's (Lactated Ringers) 1,000 mls @ 75 mls/hr IV DIRECT ZULEIKA Last Admin: 08/21/20 22:02 Dose: 75 mls/hr Documented by: Morphine Sulfate (Morphine) 2 mg IV Q4H PRN PRN Reason: Pain, Moderate (4-6) Last Admin: 08/21/20 23:02 Dose: 2 mg Documented by: Ondansetron HCl (Zofran) 4 mg IV Q4H PRN PRN Reason: Nausea And Vomiting Oxycodone/Acetaminophen (Percocet 5/325) 2 tab PO Q4H PRN PRN Reason: Pain, Moderate (4-6) Exam - Constitutional Vitals: Temp Pulse Resp BP Pulse Ox 98.7 F 95 H 20 137/77 100 08/21/20 20:33 08/21/20 20:33 08/21/20 23:02 08/21/20 20:33 08/21/20 20:33 General appearance: Present: mild distress, well-nourished - EENT Eyes: Present: PERRL ENT: hearing intact, clear oral mucosa - Neck Neck: Present: supple, normal ROM - Respiratory Respiratory effort: normal Respiratory: bilateral: CTA - Cardiovascular Heart rate: 78 Rhythm: regular Heart Sounds: Present: S1 & S2. Absent: rub, click - Extremities Extremities: no ischemia, pulses intact, pulses symmetrical, No edema Peripheral Pulses: within normal limits - Abdominal General gastrointestinal: Present: soft, tender, distended, normal bowel sounds Localized gastrointestinal: tender: diffuse, guarding: diffuse Female genitourinary: Present: normal - Integumentary Integumentary: Present: clear, warm, dry - Musculoskeletal Musculoskeletal: gait normal, strength equal bilaterally - Psychiatric Psychiatric: appropriate mood/affect, intact judgment & insight - Neurologic Neurologic: CNII-XII intact, moves all extremities - Allied Health Allied health notes reviewed: nursing, case management Results - Labs CBC & Chem 7: 08/22/20 05:57 08/21/20 08:19 Labs: Laboratory Last Values WBC 11.4 K/mm3 (4.5-11.0) H 08/21/20 08:19 RBC 5.28 M/mm3 (3.65-5.03) H 08/21/20 08:19 Hgb 14.0 gm/dl (10.1-14.3) 08/21/20 08:19 Hct 43.5 % (30.3-42.9) H 08/21/20 08:19 MCV 82 fl (79-97) 08/21/20 08:19 MCH 27 pg (28-32) L 08/21/20 08:19 MCHC 32 % (30-34) 08/21/20 08:19 RDW 14.0 % (13.2-15.2) 08/21/20 08:19 Plt Count 277 K/mm3 (140-440) 08/21/20 08:19 Lymph % (Auto) 9.2 % (13.4-35.0) L 08/21/20 08:19 [place] % (Auto) 2.6 % (0.0-7.3) 08/21/20 08:19 Eos % (Auto) 0.1 % (0.0-4.3) 08/21/20 08:19 Baso % (Auto) 0.5 % (0.0-1.8) 08/21/20 08:19 Lymph # (Auto) 1.1 K/mm3 (1.2-5.4) L 08/21/20 08:19 [place] # (Auto) 0.3 K/mm3 (0.0-0.8) 08/21/20 08:19 Eos # (Auto) 0.0 K/mm3 (0.0-0.4) 08/21/20 08:19 Baso # (Auto) 0.1 K/mm3 (0.0-0.1) 08/21/20 08:19 Seg Neutrophils % 87.6 % (40.0-70.0) H 08/21/20 08:19 Seg Neutrophils # 10.0 K/mm3 (1.8-7.7) H 08/21/20 08:19 Sodium 140 mmol/L (137-145) 08/21/20 08:19 Potassium 3.6 mmol/L (3.6-5.0) 08/21/20 08:19 Chloride 105.0 mmol/L (98-107) 08/21/20 08:19 Carbon Dioxide 25 mmol/L (22-30) 08/21/20 08:19 Anion Gap 14 mmol/L 08/21/20 08:19 BUN 12 mg/dL (7-17) 08/21/20 08:19 Creatinine 0.6 mg/dL (0.6-1.2) 08/21/20 08:19 Estimated GFR > 60 ml/min 08/21/20 08:19 BUN/Creatinine Ratio 20 % 08/21/20 08:19 Glucose 109 mg/dL (65-100) H 08/21/20 08:19 Lactic Acid 1.10 mmol/L (0.7-2.0) 08/21/20 14:37 Calcium 9.2 mg/dL (8.4-10.2) 08/21/20 08:19 Total Bilirubin 0.50 mg/dL (0.1-1.2) 08/21/20 08:19 AST 11 units/L (5-40) 08/21/20 08:19 ALT 8 units/L (7-56) 08/21/20 08:19 Alkaline Phosphatase 57 units/L (35-129) 08/21/20 08:19 Total Protein 7.5 g/dL (6.3-8.2) 08/21/20 08:19 Albumin 4.1 g/dL (3.9-5) 08/21/20 08:19 Albumin/Globulin Ratio 1.2 % 08/21/20 08:19 Lipase 13 units/L (13-60) 08/21/20 08:19 Urine Color Yellow (Yellow) 08/21/20 08:30 Urine Turbidity Slightly-cloudy (Clear) 08/21/20 08:30 Urine pH 5.0 (5.0-7.0) 08/21/20 08:30 Ur Specific [place] 1.024 (1.003-1.030) 08/21/20 08:30 Urine Protein 100 mg/dl mg/dL (Negative) 08/21/20 08:30 Urine Glucose (UA) Neg mg/dL (Negative) 08/21/20 08:30 Urine Ketones 20 mg/dL (Negative) 08/21/20 08:30 Urine Blood Lg (Negative) 08/21/20 08:30 Urine Nitrite Neg (Negative) 08/21/20 08:30 Urine Bilirubin Neg (Negative) 08/21/20 08:30 Urine Urobilinogen < 2.0 mg/dL (<2.0) 08/21/20 08:30 Ur Leukocyte Esterase Tr (Negative) 08/21/20 08:30 Urine WBC (Auto) 9.0 /HPF (0.0-6.0) H 08/21/20 08:30 Urine RBC (Auto) > 182.0 /HPF (0.0-6.0) 08/21/20 08:30 U Epithel Cells (Auto) 4.0 /HPF (0-13.0) 08/21/20 08:30 Urine Mucus 1+ /HPF 08/21/20 08:30 Urine HCG, Qual Negative (Negative) 08/21/20 08:30 Short CBC 08/21/20 Range/Units 08:19 WBC 11.4 H (4.5-11.0) K/mm3 Hgb 14.0 (10.1-14.3) gm/dl Hct 43.5 H (30.3-42.9) % Plt Count 277 (140-440) K/mm3 BMP 08/21/20 08:19 Sodium 140 Potassium 3.6 Chloride 105.0 Carbon Dioxide 25 BUN 12 Creatinine 0.6 Glucose 109 H Calcium 9.2 Liver Function 08/21/20 Range/Units 08:19 Total Bilirubin 0.50 (0.1-1.2) mg/dL AST 11 (5-40) units/L ALT 8 (7-56) units/L Alkaline Phosphatase 57 (35-129) units/L Albumin 4.1 (3.9-5) g/dL Urine 08/21/20 Range/Units 08:30 Urine Color Yellow (Yellow) Urine pH 5.0 (5.0-7.0) Ur Specific [place] 1.024 (1.003-1.030) Urine Protein 100 mg/dl (Negative) mg/dL Urine Glucose (UA) Neg (Negative) mg/dL - Imaging and Cardiology CT scan - abdomen: report reviewed Imaging and Cardiology: Abdominal CAT scan/pelvic CAT scan Moderate grade closed-loop mild mid small bowel obstruction secondary to incarcerated ventral abdominal wall hernia containing loops of small bowel with adjacent hernia mesh. Roman/IV: IV Catheter Type [Right INT / Saline Lock Antecubital] Assessment and Plan Advance Directives: Yes (Full code) VTE prophylaxis?: Chemical Plan of care discussed with patient/family: Yes - Patient Problems (1) Small bowel obstruction Current Visit: Yes Status: Acute Plan to address problem: Patient being taken to the OR for repair of incarcerated hernia Surgery consult requested (2) Umbilical hernia, incarcerated Current Visit: Yes Status: Acute Plan to address problem: Patient is going to the operating room Surgery consult appreciated (3) UTI (urinary tract infection) Current Visit: Yes Status: Acute Plan to address problem: Mild IV antibiotics postop (4) DVT prophylaxis Current Visit: Yes Status: Acute Plan to address problem: On heparin for GI prophylaxis
[2020-08-21] MEDS ORDERED: D5W/0.9% NACL 1,000 ML IV SCH (23:45)
--- NOTE | 2020-08-22 00:07 | Post Anesthesia Evaluation ---
- Post Anesthesia Evaluation Patient Participated: Yes Airway Patent: Yes Stable Respiratory Function: Yes Nausea/Vomiting: No Temp > 96.8F: Yes Pain Manageable: Yes Adequeate Hydration: Yes Anesthesia Complications: No Block Receding Appropriately: Not Applicable Patient on Ventilator: No
[2020-08-22] MEDS: CEFEPIME/NS 2 GM/100 ML 2 GM/100 ML BAG IV SCH ×2 (02:11→07:32)
[2020-08-22 04:48] VITALS: BP 125/77
[2020-08-22] MEDS: MORPHINE 2 MG/1 ML INJ IV PRN ×2 (05:12→09:33)
[2020-08-22 06:30] LABS: Basophils % (Auto) 0.1 % (0.0-1.8); Hematocrit 35.7 % (30.3-42.9); Hemoglobin 11.6 gm/dl (10.1-14.3); Lymphocytes # (Auto) 0.9 K/mm3 (1.2-5.4); Lymphocytes % (Auto) 7.2 % (13.4-35.0); Mean Corpuscular HGB Conc 33 % (30-34); Mean Corpuscular Volume 82 fl (79-97); Monocytes # (Auto) 0.5 K/mm3 (0.0-0.8); Monocytes % (Auto) 3.8 % (0.0-7.3); Platelet Count 213 K/mm3 (140-440); Red Blood Count 4.35 M/mm3 (3.65-5.03)
--- NOTE | 2020-08-22 08:53 | Progress Note ---
Assessment and Plan Assessment and plan: Incarcerated ventral hernia -General surgery was consulted and did surgery yesterday -Pain control UTI -Patient is on cefepime -UA suggestive of UTI, urine culture is pending Leukocytosis; would be reactive or due to UTI, due to monitor. DVT prophylaxis; on heparin Disposition; per surgery recommendation History Interval history: Patient was seen and evaluated this morning Patient said she is significantly improved Hospitalist Physical - Physical exam Narrative exam: Not in cardiopulmonary distress. The patient appeared well nourished and normally developed. Vital signs as documented. Head exam is unremarkable. No scleral icterus . Neck is without jugular venous distension, thyromegaly, or carotid bruits. Lungs are clear to auscultation. Cardiac exam reveals regular rate and Rhythm. Abdominal exam reveals mild tenderness at site of surgery. Extremities are nonedematous and both femoral and pedal pulses are normal. 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 No focal weakness. - Constitutional Vitals: Temp Pulse Resp BP Pulse Ox 97.7 F 90 18 125/77 100 08/22/20 04:47 08/22/20 04:47 08/22/20 04:47 08/22/20 04:47 08/22/20 04:47 General appearance: Present: mild distress, well-nourished Results - Labs CBC & Chem 7: 08/22/20 05:57 08/21/20 08:19 Labs: Laboratory Last Values WBC 13.0 K/mm3 (4.5-11.0) H 08/22/20 05:57 RBC 4.35 M/mm3 (3.65-5.03) 08/22/20 05:57 Hgb 11.6 gm/dl (10.1-14.3) 08/22/20 05:57 Hct 35.7 % (30.3-42.9) D 08/22/20 05:57 MCV 82 fl (79-97) 08/22/20 05:57 MCH 27 pg (28-32) L 08/22/20 05:57 MCHC 33 % (30-34) 08/22/20 05:57 RDW 14.0 % (13.2-15.2) 08/22/20 05:57 Plt Count 213 K/mm3 (140-440) 08/22/20 05:57 Lymph % (Auto) 7.2 % (13.4-35.0) L 08/22/20 05:57 [place] % (Auto) 3.8 % (0.0-7.3) 08/22/20 05:57 Eos % (Auto) 0.0 % (0.0-4.3) 08/22/20 05:57 Baso % (Auto) 0.1 % (0.0-1.8) 08/22/20 05:57 Lymph # (Auto) 0.9 K/mm3 (1.2-5.4) L 08/22/20 05:57 [place] # (Auto) 0.5 K/mm3 (0.0-0.8) 08/22/20 05:57 Eos # (Auto) 0.0 K/mm3 (0.0-0.4) 08/22/20 05:57 Baso # (Auto) 0.0 K/mm3 (0.0-0.1) 08/22/20 05:57 Seg Neutrophils % 88.9 % (40.0-70.0) H 08/22/20 05:57 Seg Neutrophils # 11.5 K/mm3 (1.8-7.7) H 08/22/20 05:57 Sodium 140 mmol/L (137-145) 08/21/20 08:19 Potassium 3.6 mmol/L (3.6-5.0) 08/21/20 08:19 Chloride 105.0 mmol/L (98-107) 08/21/20 08:19 Carbon Dioxide 25 mmol/L (22-30) 08/21/20 08:19 Anion Gap 14 mmol/L 08/21/20 08:19 BUN 12 mg/dL (7-17) 08/21/20 08:19 Creatinine 0.6 mg/dL (0.6-1.2) 08/21/20 08:19 Estimated GFR > 60 ml/min 08/21/20 08:19 BUN/Creatinine Ratio 20 % 08/21/20 08:19 Glucose 109 mg/dL (65-100) H 08/21/20 08:19 Lactic Acid 1.10 mmol/L (0.7-2.0) 08/21/20 14:37 Calcium 9.2 mg/dL (8.4-10.2) 08/21/20 08:19 Total Bilirubin 0.50 mg/dL (0.1-1.2) 08/21/20 08:19 AST 11 units/L (5-40) 08/21/20 08:19 ALT 8 units/L (7-56) 08/21/20 08:19 Alkaline Phosphatase 57 units/L (35-129) 08/21/20 08:19 Total Protein 7.5 g/dL (6.3-8.2) 08/21/20 08:19 Albumin 4.1 g/dL (3.9-5) 08/21/20 08:19 Albumin/Globulin Ratio 1.2 % 08/21/20 08: Lipase 13 units/L (13-60) 08/21/20 08:19 Urine Color Yellow (Yellow) 08/21/20 08:30 Urine Turbidity Slightly-cloudy (Clear) 08/21/20 08:30 Urine pH 5.0 (5.0-7.0) 08/21/20 08:30 Ur Specific [place] 1.024 (1.003-1.030) 08/21/20 08:30 Urine Protein 100 mg/dl mg/dL (Negative) 08/21/20 08:30 Urine Glucose (UA) Neg mg/dL (Negative) 08/21/20 08:30 Urine Ketones 20 mg/dL (Negative) 08/21/20 08:30 Urine Blood Lg (Negative) 08/21/20 08:30 Urine Nitrite Neg (Negative) 08/21/20 08:30 Urine Bilirubin Neg (Negative) 08/21/20 08:30 Urine Urobilinogen < 2.0 mg/dL (<2.0) 08/21/20 08:30 Ur Leukocyte Esterase Tr (Negative) 08/21/20 08:30 Urine WBC (Auto) 9.0 /HPF (0.0-6.0) H 08/21/20 08:30 Urine RBC (Auto) > 182.0 /HPF (0.0-6.0) 08/21/20 08:30 U Epithel Cells (Auto) 4.0 /HPF (0-13.0) 08/21/20 08:30 Urine Mucus 1+ /HPF 08/21/20 08:30 Urine HCG, Qual Negative (Negative) 08/21/20 08:30 Roman/IV: IV Catheter Type [Right INT / Saline Lock Antecubital] Active Medications - Current Medications Current Medications: Generic Name Dose Route Start Last Admin Trade Name Freq PRN Reason Stop Dose Admin Acetaminophen 650 mg 08/21/20 23:28 Tylenol PO Q4H PRN Pain MILD(1-3)/Fever >100.5/ADLER Heparin Sodium (Porcine) 5,000 unit 08/22/20 10:00 Heparin SUB-Q Q12HR ZULEIKA Hydromorphone HCl 0.5 mg 08/21/20 23:28 Dilaudid IV Q3H PRN Pain , Severe (7-10) Dextrose/Sodium Chloride 1,000 mls @ 100 mls/hr 08/21/20 23:45 08/22/20 05:12 D5ns IV 100 mls/hr DIRECT ZULEIKA Administration Cefepime HCl 2 gm in 100 mls @ 200 mls/hr 08/21/20 23:45 08/22/20 07:32 Cefepime/Ns 2 Gm/100 Ml IV 200 mls/hr Q8HR ZULEIKA Administration Protocol Metoclopramide HCl 10 mg 08/21/20 23:28 Reglan IV Q6H PRN Nausea And Vomiting Morphine Sulfate 2 mg 08/21/20 20:36 08/22/20 05:12 Morphine IV 2 mg Q4H PRN Administration Pain, Moderate (4-6) Ondansetron HCl 4 mg 08/21/20 23:28 Zofran IV Q3H PRN Nausea And Vomiting Oxycodone/Acetaminophen 2 tab 08/21/20 20:36 Percocet 5/325 PO Q4H PRN Pain, Moderate (4-6) Sodium Chloride 10 ml 08/22/20 10:00 Sodium Chloride Flush Syringe 10 Ml IV BID ZULEIKA Sodium Chloride 10 ml 08/21/20 23:28 Sodium Chloride Flush Syringe 10 Ml IV PRN PRN LINE FLUSH
--- NOTE | 2020-08-22 09:46 | Progress Note ---
Assessment and Plan POD#1 s/p lap incarcerated ventral hernia reduction and repair. Afebrile and stable. Increase in leukocytosis likely secondary to post op acute inflammatory reaction. If cleared by medicine can be discharged later today. Pt should call my office [phone] to make a follow up appointment to be seen in two weeks. She should wear her abdominal binder at all times while awake and active except for while sleeping if she does not want to. She should not lift, push, pull more than 20lbs for the next 6 weeks. She can shower, do not remove dermabond. It will fall of on its own. She can advance her diet as tolerated. Subjective Date of service: 08/22/20 Patient Reports: Positive: feels better, pain is less, flatus (No acute events overnight. Pt says she feels much better compared to before surgery. She is passing flatus and has had no nausea or vomiting.) Objective Vital Signs - 12hr 08/21/20 08/22/20 08/22/20 23:02 00:50 02:25 Temperature Pulse Rate 65 Respiratory 20 Rate Blood Pressure O2 Sat by Pulse 100 Oximetry 08/22/20 08/22/20 04:47 09:33 Temperature 97.7 F Pulse Rate 90 Respiratory 18 20 Rate Blood Pressure 125/77 O2 Sat by Pulse 100 Oximetry - General physical appearance well developed, no distress, no pain - Respiratory normal expansion, normal respiratory effort - Abdomen soft, not guarding, not rigid, other (abdominal binder in place, incisions c/d/i and appropriatley tender to palpation) - Labs 08/22/20 05:57 08/21/20 08:19
[2020-08-22] MEDS ORDERED: HEPARIN 5,000 UNIT/1 ML VIAL SUB-Q SCH (10:00)
--- NOTE | 2020-08-22 10:17 | Discharge Summary ---
Providers - Providers Date of Admission: 08/21/20 16:25 Date of discharge: 08/22/20 Attending physician: LUCIANO ALFORD MD Primary care physician: FORENSIC PSYCHOLOGIST Hospitalization Reason for admission: incarcerated ventral hernia Condition: Stable Hospital course: History of present illness: 30-year-old -[place] female comes in for sudden onset of abdominal pain since yesterday. Pain happened after cough. [place] [facility] [place] Pain is worsening and about 10 on a scale of 1-10. No vomiting. Nausea present. Pain is sharp in nature and intermittent. Patient was admitted to the floor and general surgery was consulted and Dr. Hamilton did incarcerated her ventral hernia reduction and repair. Patient is doing well. There is increase in leukocytosis secondary postop with inflammatory condition. Patient's UA suggestive of UTI and patient was discharged with 250 mg of Levaquin for 3 days. Patient was given pain scripts by surgery. General surgery cleared her for discharge after she tolerated full liquid diet. Recommend to follow-up with Dr. Hamilton in the office. Here is the Dr Hamilton's instruction at discharge "Pt should call my office [phone] to make a follow up appointment to be seen in two weeks. She should wear her abdominal binder at all times while awake and active except for while sleeping if she does not want to. She should not lift, push, pull more than 20lbs for the next 6 weeks. She can shower, do not remove dermabond. It will fall of on its own. She can advance her diet as tolerated." Disposition: TO HOME OR SELFCARE Time spent for discharge: 32 minutes - Discharge Diagnoses (1) Small bowel obstruction Status: Acute (2) UTI (urinary tract infection) Status: Acute (3) Umbilical hernia, incarcerated Status: Acute Core Measure Documentation - Palliative Care Palliative Care/ Comfort Measures: Not Applicable - Core Measures Any of the following diagnoses?: none Exam - Physical Exam Narrative exam: Not in cardiopulmonary distress. The patient appeared well nourished and normally developed. Vital signs as documented. Head exam is unremarkable. No scleral icterus . Neck is without jugular venous distension, thyromegaly, or carotid bruits. Lungs are clear to auscultation. Cardiac exam reveals regular rate and Rhythm. Abdominal exam reveals mild tenderness at site of surgery. Extremities are nonedematous and both femoral and pedal pulses are normal. 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 No focal weakness. - Constitutional Vitals: Temp Pulse Resp BP Pulse Ox 97.7 F 90 20 125/77 100 08/22/20 04:47 08/22/20 04:47 08/22/20 09:33 08/22/20 04:47 08/22/20 04:47 Plan Activity: no restrictions Weight Bearing Status: Full Weight Bearing Wound: per your surgeon's advice Follow up with: PRIMARY CARE, [Primary Care Provider] - 3-5 Days Prescriptions: levoFLOXacin [Levaquin] 250 mg PO QDAY #3 tablet oxyCODONE /ACETAMINOPHEN [Percocet 5/325] 2 tab PO Q4HR PRN 10 Days #20 tab PRN Reason: Pain , Severe (7-10)
== END 2020-08-22 14:18 | disposition home or self-care (01) | DRG 354 ==
LOC: ED 07:09 → 3A 16:25 → 4A 20:14
PROVIDERS: ADMIT Internal Medicine; ATTEND Internal Medicine
PROC: 0WUF4JZ Supplement Abdominal Wall with Synthetic Substitute, Percutaneous Endoscopic Approach (ICD-10-PCS; principal; 2020-08-21)
DX: K43.6 Other and unspecified ventral hernia with obstruction, without gangrene (principal); N39.0 Urinary tract infection, site not specified; K42.0 Umbilical hernia with obstruction, without gangrene
CPT/HCPCS: 36415; 74177; 80053; 81001; 81025; 82140; 83690; 85025; 87086; 88302; 96374; 96375; 96376; G0378; C1781; J0330; J0692; J1100; J1170; J1644; J1885; J2270; J2405; J2543; J2704; J2710; J7030; J7042; J7120; Q9967